=== PATIENT | female | born 1955 | race African-American/Black ===

== ENCOUNTER 2018-06-11 20:17 | Inpatient (IN) | payer OTHER, MEDICAID ==
[~2018-06-11] VITALS: Ht 172.7 cm; Wt 78.0 kg
[~2018-06-11 20:17] MED LIST: ACET-2178; ALBUTEROL; AMA2; ASPI-1158; CALC-198; COLACE GT; FLU VACCINE; METF-414 GT; MULT-783 GT; SIMV20TA2
[2018-06-11] MEDS ORDERED: PANTOPRAZOLE SODIUM 40 MG/VIAL IV STA (22:13)
[2018-06-11] MEDS ORDERED: OCTREOTIDE ACETATE 50 MCG/ML 1ML IV STA (22:13)
[2018-06-11] MEDS ORDERED: ONDANSETRON HCL 4MG/2ML INJ IV STA (22:13)
[2018-06-11 23:01] LABS: BASOPHILS % 0.8 % (0.0-2.0); EOSINOPHILS % 0.7 % (0.0-5.0); HEMATOCRIT. 35.8 % (36.0-48.0); HEMOGLOBIN. 11.9 g/dL (12.0-16.0); LYMPHOCYTES % 18.9 % (20.0-50.0); MEAN CORPUSCULAR HEMOGLOBIN 27.6 pg (28.0-32.0); MEAN CORPUSCULAR VOLUME 83.3 fL (81.0-99.0); MEAN PLATELET VOLUME 8.8 fl (7.4-10.4); MONOCYTES % 5.4 % (2.0-8.0); NEUTROPHILS % 74.2 % (40.0-76.0); PLATELET 348 x1000/uL (130-400)
[2018-06-11 23:06] LABS: INR 1.1
[2018-06-11 23:09] LABS: CHLORIDE 108 mEq/L (98-107)
[2018-06-11 23:45] LABS: CLARITY URINE CLOUDY (CLEAR); COLOR URINE YELLOW (YELLOW); KETONES URINE TRACE (NEGATIVE); LEUKOCYTE ESTERASE URINE 1+ (NEGATIVE); NITRITE URINE NEGATIVE (NEGATIVE); OCCULT BLOOD URINE NEGATIVE (NEGATIVE); PROTEIN URINE TRACE (NEGATIVE); SPECIFIC GRAVITY URINE 1.021 (1.005-1.030)
[2018-06-12] MEDS ORDERED: CEFTRIAXONE 1 G PREMIX 50 ML IV NR (02:15)
[2018-06-12] MEDS ORDERED: SODIUM CHLORIDE 0.9% 1,000 ML IV NR (02:30)
[2018-06-12] MEDS ORDERED: CLONIDINE 0.1MG TABLET GT PRN (02:45)
[2018-06-12] MEDS ORDERED: ONDANSETRON HCL 4MG/2ML INJ IV PRN (02:45)
[2018-06-12] MEDS ORDERED: IPRATROPIUM/ALBUTEROL 0.5-3(2.5)MG/3ML NEB INH PRN (02:45)
[2018-06-12] MEDS ORDERED: ACETAMINOPHEN 650MG/20.3ML UDC GT PRN (02:45)
[2018-06-12 05:15] VITALS: BP 129/67
[2018-06-12] MEDS ORDERED: DEXT 5%/0.45% NACL KCL 10MEQ/L 1,000 ML IV SCH (06:00)
[2018-06-12] MEDS ORDERED: AMA2 MT (06:04)
[2018-06-12] MEDS ORDERED: AMA2 PO (06:04)
[2018-06-12] MEDS ORDERED: CRAN450T10 PO (06:14)
[2018-06-12] MEDS ORDERED: INSLIS SUBCUT (06:14)
[2018-06-12] MEDS ORDERED: MONT10TA24 PO (06:14)
[2018-06-12] MEDS ORDERED: DOCU250C69 PO (06:14)
[2018-06-12] MEDS ORDERED: INSU100I28 SQ (06:17)
[2018-06-12] MEDS ORDERED: TERB2.5T2 PO (06:17)
[2018-06-12] MEDS ORDERED: SIMV20TA2 PO (06:17)
[2018-06-12] MEDS ORDERED: IPRA3AMP9 HHN (06:25)
[2018-06-12] MEDS ORDERED: DEXTROSE 50% WATER 50ML SYRINGE IV PRN (06:45)
[2018-06-12] MEDS: BLOOD SUGAR DIAGNOSTIC STRIP TEST SCH ×4 (06:48→23:49)
[2018-06-12 08:00] VITALS: BP 136/66
[2018-06-12] MEDS: PANTOPRAZOLE SODIUM 40 MG/VIAL IV SCH (08:09)
[2018-06-12] MEDS ORDERED: LEVOFLOXACIN 500MG PREMIX 100 ML IV SCH (09:00)
[2018-06-12 12:00] VITALS: BP 128/68
[2018-06-12 16:00] VITALS: BP 121/59
[2018-06-12 20:00] VITALS: BP 124/69
[2018-06-13] VITALS (7 sets, daily range): BP systolic 111–134; BP diastolic 53–88
[2018-06-13] MEDS: IPRATROPIUM/ALBUTEROL 0.5-3(2.5)MG/3ML NEB HHN SCH ×5 (00:42→19:40)
[2018-06-13] MEDS ORDERED: BISACODYL 10MG SUPP PR NR (00:45)
[2018-06-13] MEDS: DEXT 5%/0.45% NACL KCL 10MEQ/L 1,000 ML IV SCH ×3 (01:12→22:01)
[2018-06-13] MEDS: BLOOD SUGAR DIAGNOSTIC STRIP TEST SCH ×3 (06:08→18:02)
[2018-06-13] MEDS: LACTULOSE 20G/30ML UDC GT SCH ×3 (06:08→22:01)
[2018-06-13 06:13] LABS: BASOPHILS % 0.5 % (0.0-2.0); EOSINOPHILS % 3.5 % (0.0-5.0); HEMATOCRIT. 32.3 % (36.0-48.0); HEMOGLOBIN. 10.6 g/dL (12.0-16.0); LYMPHOCYTES % 26.7 % (20.0-50.0); MEAN CORPUSCULAR HEMOGLOBIN 27.7 pg (28.0-32.0); MEAN CORPUSCULAR VOLUME 84.8 fL (81.0-99.0); MEAN PLATELET VOLUME 9.1 fl (7.4-10.4); MONOCYTES % 6.4 % (2.0-8.0); NEUTROPHILS % 62.9 % (40.0-76.0); PLATELET 308 x1000/uL (130-400); RED CELL DISTRIBUTION WIDTH 15.8 % (11.6-14.6)
[2018-06-13 06:41] LABS: CHLORIDE 111 mEq/L (98-107)
[2018-06-13] MEDS: PANTOPRAZOLE SODIUM 40 MG/VIAL IV SCH ×2 (09:45→17:00)
[2018-06-13] MEDS: LEVOFLOXACIN 500MG PREMIX 100 ML IV SCH (11:39)
[2018-06-13] MEDS: NYSTATIN POWDER 15GM TOP SCH (17:00)
[2018-06-13] MEDS: MUPIROCIN 2% OINT 22GM TOP SCH (22:47)
[2018-06-14 00:01] VITALS: BP 143/61
[2018-06-14 04:00] VITALS: BP 130/51
[2018-06-14] MEDS: LACTULOSE 20G/30ML UDC GT SCH ×3 (05:46→22:59)
[2018-06-14] MEDS: BLOOD SUGAR DIAGNOSTIC STRIP TEST SCH ×4 (06:00→18:21)
[2018-06-14] MEDS: DEXT 5%/0.45% NACL KCL 10MEQ/L 1,000 ML IV SCH ×2 (06:28→18:10)
[2018-06-14 07:17] LABS: BASOPHILS % 0.7 % (0.0-2.0); EOSINOPHILS % 2.4 % (0.0-5.0); HEMOGLOBIN. 10.6 g/dL (12.0-16.0); LYMPHOCYTES % 26.7 % (20.0-50.0); MEAN CORPUSCULAR HEMOGLOBIN 28.1 pg (28.0-32.0); MEAN CORPUSCULAR VOLUME 84.5 fL (81.0-99.0); MEAN PLATELET VOLUME 8.9 fl (7.4-10.4); MONOCYTES % 7.4 % (2.0-8.0); NEUTROPHILS % 62.8 % (40.0-76.0); PLATELET 292 x1000/uL (130-400); RED BLOOD CELL COUNT 3.78 mill/uL (4.2-5.4); RED CELL DISTRIBUTION WIDTH 15.4 % (11.6-14.6)
[2018-06-14 07:25] LABS: INR 1.1; PROTHROMBIN TIME 11.5 sec (9.1-11.1)
[2018-06-14 07:35] LABS: CHLORIDE 113 mEq/L (98-107)
[2018-06-14] MEDS: PANTOPRAZOLE SODIUM 40 MG/VIAL IV SCH ×2 (09:46→18:11)
[2018-06-14] MEDS: NYSTATIN POWDER 15GM TOP SCH ×3 (09:47→18:12)
[2018-06-14] MEDS: LEVOFLOXACIN 500MG PREMIX 100 ML IV SCH (09:47)
[2018-06-14] MEDS: MUPIROCIN 2% OINT 22GM TOP SCH ×2 (09:47→22:59)
[2018-06-14] MEDS: IPRATROPIUM/ALBUTEROL 0.5-3(2.5)MG/3ML NEB HHN SCH ×3 (11:49→21:35)
[2018-06-14 12:00] VITALS: BP 109/76
[2018-06-14 14:00] VITALS: BP 117/85
[2018-06-14] MEDS ORDERED: SODIUM CHLORIDE 0.9% 10ML VIAL ONE (15:39)
[2018-06-14] MEDS ORDERED: FENTANYL CITRATE/PF 50MCG/ML 2ML VIAL ONE (16:12)
[2018-06-14] MEDS ORDERED: MIDAZOLAM HCL 5 MG/5 ML VIAL ONE (16:12)
[2018-06-14] MEDS ORDERED: MIDAZOLAM HCL 5 MG/5 ML VIAL IV PRN (16:23)
[2018-06-14] MEDS ORDERED: FENTANYL CITRATE/PF 50MCG/ML 2ML VIAL IV PRN (16:25)
[2018-06-14 18:00] VITALS: BP 125/79
[2018-06-14 20:00] VITALS: BP 131/46
[2018-06-15] VITALS: BP 111/59
[2018-06-15] MEDS: BLOOD SUGAR DIAGNOSTIC STRIP TEST SCH ×4 (00:58→17:13)
[2018-06-15] MEDS: IPRATROPIUM/ALBUTEROL 0.5-3(2.5)MG/3ML NEB HHN SCH ×3 (02:37→21:46)
[2018-06-15 04:00] VITALS: BP 133/72
[2018-06-15] MEDS: LACTULOSE 20G/30ML UDC GT SCH ×3 (05:54→22:00)
[2018-06-15] MEDS: DEXT 5%/0.45% NACL KCL 10MEQ/L 1,000 ML IV SCH ×3 (05:54→22:07)
[2018-06-15 08:00] VITALS: BP 129/67
[2018-06-15] MEDS: PANTOPRAZOLE SODIUM 40 MG/VIAL IV SCH ×2 (09:00→17:13)
[2018-06-15] MEDS: NYSTATIN POWDER 15GM TOP SCH ×3 (10:17→17:00)
[2018-06-15] MEDS: MUPIROCIN 2% OINT 22GM TOP SCH ×2 (10:18→22:06)
[2018-06-15] MEDS: LEVOFLOXACIN 500MG PREMIX 100 ML IV SCH (10:30)
[2018-06-15 12:00] VITALS: BP 120/70
[2018-06-15] MEDS ORDERED: BISACODYL 10MG SUPP PR NR (14:00)
[2018-06-15 16:00] VITALS: BP 132/63
[2018-06-15 20:00] VITALS: BP 122/62
[2018-06-16] VITALS: BP 116/67
[2018-06-16] MEDS: IPRATROPIUM/ALBUTEROL 0.5-3(2.5)MG/3ML NEB HHN SCH ×3 (02:18→14:28)
[2018-06-16 04:00] VITALS: BP 113/58
[2018-06-16] MEDS: BLOOD SUGAR DIAGNOSTIC STRIP TEST SCH ×4 (05:46→18:00)
[2018-06-16] MEDS: LACTULOSE 20G/30ML UDC GT SCH ×2 (06:00→13:07)
[2018-06-16 08:00] VITALS: BP 126/61
[2018-06-16] MEDS: NYSTATIN POWDER 15GM TOP SCH ×3 (09:01→18:45)
[2018-06-16] MEDS: DEXT 5%/0.45% NACL KCL 10MEQ/L 1,000 ML IV SCH (09:01)
[2018-06-16] MEDS: PANTOPRAZOLE SODIUM 40 MG/VIAL IV SCH ×2 (09:01→18:45)
[2018-06-16] MEDS: MUPIROCIN 2% OINT 22GM TOP SCH (09:01)
[2018-06-16 12:00] VITALS: BP 139/70
[2018-06-16] MEDS: LEVOFLOXACIN 500MG PREMIX 100 ML IV SCH (12:25)
[2018-06-16 16:00] VITALS: BP 139/70
[2018-06-16 16:43] VITALS: BP 139/70
== END 2018-06-16 19:15 | DRG 241 ==
LOC: ER 20:17 → 6WST 06-12 02:18 → EDBEDREQTM 06-12 02:22 → EDBEDREQ 06-12 02:22 → ENRESERV 06-12 03:27 → 6EST 06-14 13:32
PROVIDERS: ADMIT Internal Medicine; ATTEND Internal Medicine
PROC: 0D20XYZ Change Other Device in Upper Intestinal Tract, External Approach (ICD-10-PCS; principal; 2018-06-14 15:00)
DX: K29.61 Other gastritis with bleeding (principal); E46 Unspecified protein-calorie malnutrition; F03.90 Unspecified dementia, unspecified severity, without behavioral disturbance, psychotic disturbance, mood disturbance, and anxiety; G35 Multiple sclerosis; K94.23 Gastrostomy malfunction; R13.12 Dysphagia, oropharyngeal phase; N39.0 Urinary tract infection, site not specified; J44.9 Chronic obstructive pulmonary disease, unspecified; I10 Essential (primary) hypertension; E78.5 Hyperlipidemia, unspecified; K56.41 Fecal impaction; K21.9 Gastro-esophageal reflux disease without esophagitis; F32.9 Major depressive disorder, single episode, unspecified; F79 Unspecified intellectual disabilities; F29 Unspecified psychosis not due to a substance or known physiological condition; K44.9 Diaphragmatic hernia without obstruction or gangrene; Y83.3 Surgical operation with formation of external stoma as the cause of abnormal reaction of the patient, or of later complication, without mention of misadventure at the time of the procedure; E11.9 Type 2 diabetes mellitus without complications; E78.00 Pure hypercholesterolemia, unspecified; Z83.3 Family history of diabetes mellitus; Z82.49 Family history of ischemic heart disease and other diseases of the circulatory system; Z87.891 Personal history of nicotine dependence; Z79.899 Other long term (current) drug therapy; Z79.4 Long term (current) use of insulin; Z79.82 Long term (current) use of aspirin; Z93.1 Gastrostomy status; Y92.89 Other specified places as the place of occurrence of the external cause; Z68.26 Body mass index [BMI] 26.0-26.9, adult
CPT/HCPCS: 36415; 71045; 74018; 74021; 80048; 80061; 80076; 82150; 82270; 82962; 83605; 83735; 84134; 86850; 86870; 86900; 94640; 96365; 96375; 99285; A4216; C1893; C9113; J0696; J1956; J2250; J2354; J2405; J3010; J7030; J7620